=== PATIENT | male | born 1965 | race Caucasian/White ===

== ENCOUNTER 2019-03-23 03:35 | Emergency (ER) | payer BC ==
[~2019-03-23] VITALS: Ht 170.2 cm; Wt 79.4 kg
[2019-03-23 03:44] VITALS: BP 161/94
--- NOTE | 2019-03-23 03:48 | NUR ---
PT AMBULATED TO BED #1
--- NOTE | 2019-03-23 03:48 | NUR ---
Meggan ortiz in [facility] - 03/23/19 at 0352 by RANJ PT AMBULATED TO BED #3
--- NOTE | 2019-03-23 03:55 | NUR ---
PT 53 Y/O MALE BIB SELF FOR C/O PALPITATIONS X 1 HOUR. PT AAO X 4. PT STATED," IT'S HAPPENED BEFORE AND I HAVE BEEN ABLE TO RELAX, BUT THIS TIME IT DIDN'T STOP." PT STATES HE HAS A HX OF HTN AND IS COMPLIANT WITH B/P MEDICATIONS. PT CURRENTLY TAKES NORVASC 10MG DAILY. RESPIRATIONS ARE EVEN AND UNLABORED. PT DENIES SOB OR CHEST PAIN. SKIN IS WARM AND DRY TO TOUCH. PT DENIES N/V/D. PT ON MONITOR VVS. AT BEDSIDE. BED LOCKED AND IN LOWEST POSITION. MED HX: HTN ALLERGIES: NONE.
--- NOTE | 2019-03-23 04:45 | NUR ---
LAB AT BEDSIDE.
[2019-03-23 05:02] LABS: BASOPHILS % (AUTO) 0.4 % (0.0-2.0); EOSINOPHILS # (AUTO) 0.1 K/uL (0-0.4); EOSINOPHILS % (AUTO) 1.7 % (0.0-4.0); HEMATOCRIT 46.8 % (36-52); HEMOGLOBIN 15.9 g/dL (12.0-18.0); LYMPHOCYTES % (AUTO) 17.2 % (20.5-51.1); MEAN CORPUSCULAR HEMOGLOBIN 32 pg (27-31); MEAN CORPUSCULAR HGB CONC 34 g/dL (33-37); MEAN CORPUSCULAR VOLUME 93.3 fL (80-94); MONOCYTES # (AUTO) 0.5 K/uL (0.8-1.0); MONOCYTES % (AUTO) 8.3 % (1.7-9.3); NEUTROPHILS # (AUTO) 4.2 K/uL (1.8-7.7); NEUTROPHILS % (AUTO) 72.4 % (42.2-75.2); PLATELET COUNT (AUTO) 239 K/uL (140-450); RED BLOOD CELL COUNT(AUTO) 5.02 MIL/uL (4.20-6.10); WHITE BLOOD COUNT (AUTO) 5.9 K/uL (4.8-10.8)
[2019-03-23 05:15] LABS: ALBUMIN 4.1 g/dL (3.4-5.0); CARBON DIOXIDE 26.2 mmol/L (21-32); CREATININE 1.1 mg/dL (0.6-1.3); POTASSIUM 3.2 mmol/L (3.5-5.1); TOTAL BILIRUBIN 0.4 mg/dL (0.0-1.0)
[2019-03-23 05:17] LABS: PROTHROMBIN TIME 9.9 secs (10.8-13.4)
--- NOTE | 2019-03-23 05:20 | NUR ---
PT AMBULATED TO RESTROOM WITHOUT ASSISTANCE.
--- NOTE | 2019-03-23 05:55 | NUR ---
PT RESTING IN BED EYES OPEN. RESPIRATIONS ARE EVEN AND UNLABORED. SKIN IS WARM AND DRY TO TOUCH. PT ON MONITOR. VSS. AT BEDSIDE.
--- NOTE | 2019-03-23 09:02 | NUR ---
Dr. Christianson is evaluating the patient at bedside.
[2019-03-23 09:17] VITALS: BP 135/81
--- NOTE | 2019-03-23 09:17 | NUR ---
Patient discharged with v/s stable. Written and verbal after care instructions given and explained. Patient verbalized understanding. Ambulatory with steady gait. All questions addressed prior to discharge. Advised to follow up with PMD.
== END 2019-03-23 09:06 | disposition home or self-care (01) ==
LOC: MED 03:35
DX: R00.2 Palpitations (principal); I10 Essential (primary) hypertension
CPT/HCPCS: 36415; 71045; 80053; 83880; 84484; 85025; 85610; 85730; 93005; 99284